=== PATIENT | female | born 1980 | race Caucasian/White ===

== ENCOUNTER 2017-03-31 20:27 | Emergency (ER) | payer OTHER ==
[~2017-03-31] VITALS: Ht 162.6 cm; Wt 65.5 kg
[~2017-03-31 20:27] MED LIST: BENADRYL50 MG PO; IBUPROFEN800 MG PO; METHADONE10 MG PO; MOBIC15 MG PO; NAPROXEN500 MG PO; NICOTINE PATCH1 EAC2 TD; NOHOMEMEDS; PERCOCET 5/31 TABLET PO; PREDNISONE20 MG PO; PRENAPLUS TABL1 EACH PO; PROMETHAZINE HC25 M1 PO
[2017-03-31] MEDS ORDERED: NAPROSYN500 MG PO (22:16)
[2017-03-31 22:40] VITALS: BP 123/74
== END 2017-03-31 22:42 | disposition home or self-care (01) ==
LOC: EME 20:27 → EXP 20:27
DX: S83.92XA Sprain of unspecified site of left knee, initial encounter (principal); W19.XXXA Unspecified fall, initial encounter; Z88.0 Allergy status to penicillin; Z88.5 Allergy status to narcotic agent
CPT/HCPCS: 73564; 99281; 99284